=== PATIENT | female | born 1995 | race African-American/Black ===

== ENCOUNTER 2017-12-11 16:22 | Emergency (ER) | payer OTHER ==
[~2017-12-11] VITALS: Ht 167.6 cm; Wt 70.0 kg
[2017-12-11 16:24] VITALS: BP 122/77
== END 2017-12-11 17:58 | disposition home or self-care (01) ==
LOC: ED 17:50
DX: S60.111A Contusion of right thumb with damage to nail, initial encounter (principal); X58.XXXA Exposure to other specified factors, initial encounter; Y93.89 Activity, other specified; Y99.8 Other external cause status; Y92.410 Unspecified street and highway as the place of occurrence of the external cause
CPT/HCPCS: 11740; 99284